=== PATIENT | male | born 1950 | race Caucasian/White ===

== ENCOUNTER → 2017-12-06 | Outpatient (REF) | payer MEDICARE, OTHER ==
[2017-12-06 13:13] LABS: RBC, URINE NONE SEEN /hpf (0-3); WBC, URINE 0-1 /hpf (0-3)
[2017-12-06 13:14] LABS: BACTERIA, URINE LARGE AMOUNT; HYALINE CAST, URINE NONE SEEN /lpf (0-1); MICROSCOPIC EXAM PERFORMED; SQUAMOUS EPITHELIAL CELL URINE NONE SEEN /hpf (SMALL AMT)
[2017-12-06 13:53] LABS: TOTAL PROTEIN,RANDOM URINE 37.5 MG/DL (0.0-12.0)
[2017-12-09 10:15] LABS: ANTI-GLOMERULAR BASEMENT MEMB 4 units (0-20)
== END ==
LOC: M LAB REF 12:48
DX: N17.9 Acute kidney failure, unspecified (principal); R31.9 Hematuria, unspecified; R80.9 Proteinuria, unspecified
CPT/HCPCS: 84156

== ENCOUNTER → 2018-03-13 | Outpatient (REF) | payer MEDICARE, OTHER ==
[2018-03-13 18:16] LABS: TOTAL PROTEIN,RANDOM URINE 18.2 MG/DL (0.0-12.0)
== END ==
LOC: M LAB REF 16:53
DX: R80.9 Proteinuria, unspecified (principal)
CPT/HCPCS: 84156

== ENCOUNTER → 2018-07-31 | Outpatient (REF) | payer MEDICARE, OTHER ==
[2018-07-31 13:15] LABS: BACTERIA, URINE AUTO NEGATIVE (NEGATIVE); MUCUS, URINE SMALL (NEGATIVE); RBC, URINE AUTO 0 /HPF (0-3); SQUAMOUS EPITHELIAL CELL UR AU 0 /HPF (0-6); WBC, URINE AUTO 1 /HPF (0-3)
[2018-07-31 13:44] LABS: TOTAL PROTEIN,RANDOM URINE 30.4 MG/DL (0.0-12.0)
== END ==
LOC: M LAB REF 12:55
DX: R80.9 Proteinuria, unspecified (principal); E11.22 Type 2 diabetes mellitus with diabetic chronic kidney disease
CPT/HCPCS: 84156